=== PATIENT | female | born 1990 | race Two or more races ===

== ENCOUNTER → 2024-07-23 | Emergency (ER) | payer OTHER ==
[~2024-07-23] VITALS: Ht 160 cm; Wt 75.7 kg
[~2024-07-23] MED LIST: ADDERALL 15 MG15 MG PO; KETOROLAC TROMETHAMINE 30 MG VIAL IM STA; KETOROLAC TROMETHAMINE 60 MG VIAL IM ONE; LEXAPRO5 MG PO; WELLBUTRIN XL300 MG PO
== END | disposition home or self-care (01) ==
LOC: ER 15:21
DX: S91.341A Puncture wound with foreign body, right foot, initial encounter (principal); W56.82XA Struck by other nonvenomous marine animals, initial encounter; Y93.89 Activity, other specified; Y92.832 Beach as the place of occurrence of the external cause